=== PATIENT | female | born 1965 | race Caucasian/White ===

== ENCOUNTER → 2017-08-25 16:47 | Outpatient (CLI) | payer OTHER, SELFPAY ==
--- NOTE | 2017-08-25 | EMB_PTH ---
PATIENT: KAYLEE MCNALLY LOC: [facility] U#:[id number] AGE/SX: 59/F ROOM: RE08/25/[address]: EMERSON Humphrey : 1965 BED: DIS: SPEC #: [id number] RECD: 08/25/17 16:19 STATUS: JORGE ROSARIO #: [id number] ROBBY: 08/25/17 00:[address]: Lakshmi De La Rosa NP DEPT: SURGICAL PATHOLOGY RECD BY: Florentin Alvarez ENTERED: 08/26/17 08:46 SP TYPE: ENDOM BX/C WALT DR: Dr. Dali Dorsey MD Tissues: Endometrium, NOS Procedures: Surgery Specimen Level IV HEADER OPERATION: Endometrial biopsy PRE-OP DIAGNOSIS: Abnormal uterine bleeding TISSUE SUBMITTED: Endometrium MICROSCOPIC DIAGNOSIS Endometrial biopsy: Proliferative endometrium. See comment. WARREN:mary carmen 08/27/17 COMMENT A minute fragment of polypoid endometrial tissue with focal cystic changes is noted, may represent portion of benign endometrial polyp. MICROSCOPIC DESCRIPTION Slides are reviewed. GROSS DESCRIPTION Received is one container labeled with the patient's name and not further designated. The specimen consists of multiple irregular and elongated fragments of red-larios soft tissue that in aggregate measure 2.2 x 2 x 0.2 cm. The specimen is totally submitted in one cassette. / AM:mary carmen 08/26/17 TC:5 [facility]: [id number]
== END ==
PROVIDERS: Family Provider Internal Medicine; PCP Internal Medicine; Visit Provider Nurse Practitioner Women's Health
DX: N85.8 Other specified noninflammatory disorders of uterus (principal); N93.9 Abnormal uterine and vaginal bleeding, unspecified
CPT/HCPCS: 88305

== ENCOUNTER 2017-12-23 05:41 | Day surgery (SDC) | payer OTHER, SELFPAY ==
[2017-12-21 11:09] LABS: Absolute Lymphocyte Count 1.66 X10^3/ul (0.83-4.51); Absolute Neutrophil Count 2.5 X10^3/uL (2.0-7.7); Basophil# 0.04 X10^3/uL; Basophil% 0.8 % (0-1); Eosinophil# 0.18 X10^3/uL; Eosinophils% 3.6 % (0-5); Hematocrit 40.6 % (37-47); Hemoglobin 13.6 g/dl (12.0-15.0); Lymphocyte # 1.66 X10^3/ul (4.0); Lymphocyte % 33.6 % (19-41); Mean Corp Hgb Conc 33.5 g/gl (32-36); Mean Corpuscular Hgb 29.8 pg (27.0-32.0); Mean Corpuscular Volume 88.8 fL (81-99); Mean Platelet Vol. 9.8 fl (6.2-12.0); Monocyte# 0.51 X10^3/uL; Monocyte% 10.3 % (0-10); Neutrophil # 2.52 X10^3/uL (2.7-7.7); Neutrophil % 51.1 % (47-70); Platelet Count 310 K/mm3 (150-450); RBC Distribution Width CV 12.9 % (11.6-14.6); RBC Distribution Width SD 41.7 fl (35.1-43.9); Red Blood Count 4.57 M/mm3 (4.2-5.4); White Blood Count 4.9 K/mm3 (4.4-11.0)
[2017-12-21 11:21] LABS: POSITIVE COUNT NO; POSITIVE DIFFERENTIAL NO; POSITIVE MORPHOLOGY NO
--- NOTE | 2017-12-22 17:23 | PCM.HPOB.BLA ---
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 Required: No Accompanied by: self Is patient in pain?: No Allergies Penicillins Allergy (Mild, Verified 10/18/17 08:04) hives Medications NK [NK] 08/25/17 [History Confirmed 10/18/17] Is last menstrual period known: Yes Last Menstral Period: 09/06/17 Post menopausal: No Patient : No [facility] Medical History Abnormal Pap smear of cervix (Acute) Surgical History S/P dilation and curettage (Resolved) S/P right knee surgery (Resolved) Status post colposcopy (Resolved) Family History Grandfather Myocardial infarction Prostate cancer Grandmother Lung cancer Social History Smoking Status: Never smoker alcohol intake: current details: few times per week substance use type: does not use caffeine: Yes what type of physical activity do you participate in: walking, running, aerobics frequency: 3-4 times per week seatbelt use: always do you feel safe at home: Yes 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 she is struggling with if she wants treatment or not. Female Reproductive History Last Menstral Period: 09/06/17 Cycle Length: 21-35 Questions: Metorrhagia: No, Sexually active: Yes, PCB: No Pregancy History 3 Elective abortions Hx Para 2 Spontaneous abortions Hx # Term Pregnancies Ectopic pregnancies Hx # Pregnancies Multiple births # of living children Past Pregnancies Del. Date Name GA/Weeks Outcome Route Bth Weight Gen Labor Lgth Anesthesia Del Locatn Provider FOB Unknown - 1995 Unknown ROS Const Constitutional: Denies poor appetite, headache(s), fever(s), increased appetite, weight gain, weight loss or fatigue Cardio Card: Denies chest pain Resp Resp: Denies dyspnea or cough GI GI: Reports as per HPI; denies vomiting, nausea, abdominal pain or constipation : Reports as per HPI; denies urinary urgency, vaginal discharge, urinary frequency, vaginal itching, vaginal odor, vaginal dryness, urinary incontinence, urinary hesitancy, difficulty urinating, painful urination or nipple discharge Skin Skin/Breast: Denies breast lump, breast pain, breast skin changes, nipple discharge or change in hair Exam Const General: cooperative, healthy appearing, comfortable, no acute distress, well developed Nutritional Appearance: average body habitus Orientation: alert HENMT Head: normal to inspection, normocephalic Neck Neck: normal visual inspection, trachea midline Thyroid: thyroid normal Resp Effort & Inspection: normal respiratory effort Cardio Rate: regular rate Rhythm: regular rhythm Heart Sounds: S1 normal, S2 normal GI Inspection: normal to inspection, non-distended Palpation: soft, no hepatosplenomegaly General: bladder normal to palpation External Female Exam: normal external appearance, normal appearance of the urethra Urethra: normal appearance of the urethra, normal palpation Speculum Exam - Vagina: normal appearance of the vagina, vaginal bleeding Speculum Exam - Cervix: normal appearance of the cervix, nontender Bimanual Exam- Vagina & Uterus: bladder normal to palpation, No cervical tenderness, uterine mobility normal, uterine consistency normal, normal cervical palpation, uterus non-tender, uterus enlarged (12 week size wide multiple fibroids) Bimanual Exam- Adnexa, other: normal adnexae, adnexae mobile, no adnexal masses, pelvic support normal Pelvic Support: normal OB/External & Speculum: vaginal bleeding Speculum Exam: vaginal bleeding Musc Cervical Spine: other Other: gross motor intact no deficits, full bilateral strength Skin General: no rashes or lesions noted Neuro General: alert, awake, no focal motor deficits, moves all extremities Motor: muscle tone normal throughout Extrem General: normal to inspection, no pedal edema Psych Appearance: grossly normal Mental Status: mental status grossly normal Affect: normal affect Speech and Movement: speech and movement normal Assessment & Plan Problems 1. Female pelvic pain R10.2 2. Abnormal uterine bleeding N93.9 3. Intramural leiomyoma of uterus D25.1 plan [facility] BS cysto Plan discussed expectant management vs hysterectomy. patient wishes to proceed with surgery. discussed surgical risks including risks of anesthesia, infection, bleeding, injury to bowel, bladder or blood vessels, and patient wishes to proceed with surgery. Pelvic US findings- The uterus is anteverted and is in a midline position. The uterus is enlarged measures 12.5 x 8.1 x 8.2 cm. There are Nabothian cysts of the cervix. The endometrium measures 6.4 mm in thickness, and is hyperechoic. There is no demonstrated endometrial mass. There are myometrial masses/fibroids best seen transabdominally, largest 2 fibroids measure 5.0 x 3.8 x 3.7 cm and 2.2 x 2.0 x 2.1 cm in size. I.U.D. - The patient does not have an I.U.D. The right ovary is visualized. The right ovary measures 1.6 x 1.8 x 1.2 cm. There is no right ovarian cyst or ovarian mass. There is no visualized right adnexal mass or complex lesion. There is normal arterial and normal venous vascularity. The left ovary is visualized. The left ovary measures 2.0 x 2.0 x 1.5 cm. There is no left ovarian cyst or ovarian mass. There is no visualized left adnexal mass or complex lesion. There is normal arterial and normal venous UPDATE- I have seen the patient and performed any clinically relevant updates to the history and physical exam. Alvina Barrios MD
[2017-12-23] VITALS (12 sets, daily range): BP systolic 87–133; BP diastolic 59–86; PULSE 48–84; RESP 14–16; TEMP 36.3–36.9; O2SAT 90–100; BMI 31.9
--- NOTE | 2017-12-23 | HYST_PTH ---
PATIENT: KAYLEE MCNALLY LOC: [facility] [place] U#:[id number] AGE/SX: 52/F ROOM: RE12/23/[address]: Dr. Alvina Barrios MD : 1965 BED: DIS: 12/24/2017 SPEC #: [id number] RECD: 12/23/17 11:53 STATUS: JORGE PONCE #: [id number] ROBBY: 12/23/17 00:[address]: Alvina Barrios DEPT: SURGICAL PATHOLOGY RECD BY: Florentin Alvarez ENTERED: 12/23/17 11:53 SP TYPE: HYSTERECT OTHR DR: Dr. Dali Dorsey MD Tissues: Uterus, NOS Procedures: Surgery Specimen Level V HEADER OPERATION: Hysterectomy, lap-assisted vaginal, bilateral salpingectomy PRE-OP DIAGNOSIS: Female pelvic pain, abnormal uterine bleeding, intramural leiomyoma of uterus TISSUE SUBMITTED: Uterus, cervix and bilateral tubes MICROSCOPIC DIAGNOSIS Uterus, cervix and bilateral fallopian tubes, vaginal hysterectomy and bilateral salpingectomy: Cervix ? mild chronic cystic cervicitis. Endometrium ? proliferative endometrium. Myometrium ? submucosal, intramural and subserosal leiomyomas (largest measuring 2 cm in greatest dimension). - Adenomyosis. Bilateral fallopian tubes - no pathologic diagnosis. SJ:rg 12/24/17 MICROSCOPIC DESCRIPTION Slides are reviewed. GROSS DESCRIPTION Received in fixative is one container labeled with the patient's name and designated uterus, cervix and bilateral tubes. The specimen consists of a hysterectomy specimen previously partially opened consisting of uterus with cervix consisting of attached right fallopian tube and proximal portion of attached left fallopian tube and detached distal portion left fallopian tube including fimbrial end. The uterus with cervix weighs 238 gm and measures 11 x 9 x 7 cm. The serosal surface is larios, glistening. A few minute subserosal nodules are noted. The external os is circular in contour. The endocervical canal measures 3 cm in length and the endocervical mucosa is larios, glistening and unremarkable. Sections of the cervix reveal two cysts filled with mucoid material. The endometrial cavity measures 5 cm in length and up to 3 cm in width. The endometrium is larios, glistening without any mass lesion and measures 0.1 cm in thickness. Sections of the uterine wall reveal multiple submucosal, intramural and subserosal nodular masses. The largest mass measures 2 cm in greatest dimension. The anterior uterine wall measures up to 3.5 cm in thickness and posterior uterine wall measures up to 2.5 cm in thickness. Sections of these masses reveal larios whorled cut surfaces without areas of hemorrhage, necrosis or cystic degeneration. The anterior uterine wall shows trabecular appearance suspicious for adenomyosis. The right fallopian tube measures 6.5 cm in length and 0.7 cm in diameter. The fimbrial end is identified. Sections reveal unremarkable cut surfaces. The attached portion of the left fallopian tube measures 4 cm in length and 0.8 cm in diameter. The detached distal end including fimbrial end measures 3 cm in length and up to 0.5 cm in diameter. A paratubal cyst is also noted measuring 0.5 cm in greatest dimension. Adoption Agent sections are submitted in 11 cassettes as follows: 1 - anterior cervix, 2 - posterior cervix, 3 & 4 - anterior uterine wall, 5 & 6 - posterior uterine wall, 7 & 8 ? smaller and intermediate sized nodular masses, 9 ? largest nodular mass, 10 ? right fallopian tube, 11 ? left fallopian tube including detached portion of the left fallopian tube. / SJ:mary carmen 12/23/17 TC:1 CPT: 82811
[2017-12-23 06:15] LABS: Internal QC Validated? YES +Cl - CLEAR BKGD; Pregnancy, Urine Negative Negative
[2017-12-23] MEDS: Phenazopyridine 95 MG Tablet 190 MG PO (06:30)
[2017-12-23] MEDS: Bupivacaine Mpf 0.5% 30 ML VIAL (08:00)
[2017-12-23] MEDS: Vasopressin 20 UNITS/ML Vial (08:20)
--- NOTE | 2017-12-23 09:09 | PCM.OPRPT ---
Problem List (1) Abnormal uterine bleeding Status: Acute (2) BMI greater than 30 Status: Acute Comment: weight loss info given discussed adipex if desired (3) Female pelvic pain Status: Acute (4) Uterine fibroid Status: Acute Qualifiers: Comment: plan [facility] BS cysto, education from up to date given Report of Operation Date of Procedure: 12/23/17 Pre-Operative Diagnosis: Urine fibroids enlarged uterus pelvic pain Post-Operative Diagnosis: Same Surgery/Procedure Performed:: Laparoscopic assisted vaginal hysterectomy bilateral salpingectomy cystoscopy Description of Surgical Findings:: Enlarged fibroid uterus normal ovaries and fallopian tubes bilaterally. Small 5 mm growth near right ureteral orifice detonator maker: Edelmira Perez Type of Anesthesia:: General Special Medications: None Specimen's removed: Uterus and tubes Drains: Ochoa Estimated Blood Loss (mL): 50 Fluids Replaced: Crystalloid Description of Procedure: Patient received preoperative antibiotics and SCDs were on preoperatively. Patient was taken back to the operating room and placed in the dorsal lithotomy position. General anesthesia was induced and patient was prepped and draped in normal sterile fashion. Uterine manipulator was placed inside the uterus and Ochoa catheter placed in the bladder. The umbilicus was grasped with towel clamps and an intraumbilical incision was made after injecting with quarter percent Marcaine and a Veress needle entered into the abdomen confirmed to be intra-abdominal with a low opening pressure. Abdomen was insufflated with CO2 gas and the Veress needle removed and the 5 mm trocar was placed under direct visualization without complication. Right and left lower quadrants were transilluminated and injected with quarter percent Marcaine and 5 mm ports placed under direct visualization. Pelvis was well visualized see operative findings for additional information. Bilateral fallopian tubes were identified and transected with the LigaSure device across the mesosalpinx to the level of the utero-ovarian ligament which was also transected with the LigaSure device. The broad ligament was opened up by transecting the round ligament bilaterally and skeletonizing the uterine vessels bilaterally and creating a bladder flap using the LigaSure device. The uterine arteries were transected bilaterally with good visualization of the bladder and the ureters were seen to be inferior lateral to the operative area. Attention was then paid to the vaginal portion of the procedure and the cervix was grasped with Kaylee clamps and circumferentially injected with dilute vasopressin. A circumferential incision was made and the vaginal mucosa was mobilized off posteriorly and the cul-de-sac entered into sharply and a longneck speculum placed. The anterior cul-de-sac was then identified and entered into sharply. The uterosacral ligaments were clamped cut and suture ligated with 0 Monocryl bilaterally followed by the cardinal ligaments which were clamped cut and suture ligated bilaterally with 0 Monocryl. The uterus serially descended and was removed without difficulty with minimal morcellation. Pelvic sidewall pedicles were checked and noted to have excellent hemostasis. The vaginal mucosa was reapproximated incorporating the posterior peritoneum. This was reapproximated using 0 Vicryl [id number] sutures. Excellent hemostasis was noted. The cystoscopy was then performed and bilateral ureteral strong spray was noted and the bladder was inspected and a small 5 mm growth was seen at the right ureteral orifice. Picture was taken. Ochoa catheter was replaced and then attention paid to the abdominal portion of the procedure again. The pelvis and cul-de-sac was well visualized and no significant active bleeding noted but some raw areas were seen on the peritoneum and therefore Angela was applied. Pressure was taken down and the areas visualized and noted of excellent hemostasis. All ports were removed under direct visualization without complication and the abdomen was desufflated of air. The instruments removed from the abdomen and the vagina vaginal sweep was negative. Port sites on the abdomen were closed with 4-0 Monocryl interrupted sutures and Steri's and windows were applied. She was awoken and taken recovery in stable condition. Grafts/Implants Used: None - Complications None - Admit VTE Documentation VTE Present on Admission: No
[2017-12-23] MEDS: Lactated Ringers 1,000 ML 125 ML IV ×2 (11:57→19:25)
[2017-12-23] MEDS: Ketorolac 30 MG/ML Syringe IV ×3 (11:57→23:17)
[2017-12-23 13:08] LABS: Anion Gap 10 (5-15); BUN 10 mg/dL (7-18); BUN/Creat Ratio 13.6 RATIO (10-20); Calcium,Total 8.3 mg/dL (8.5-10.1); Chloride 108 mmol/L (98-107); Creatinine, Serum 0.74 mg/dL (0.55-1.02); EST Glomerular Filtration Rate 87 mL/min (>60); Est Glom Filt Rate - Afr Amer 105 mL/min (>60); Estimated Creatinine Clearance 84.52 ml/min; Glucose 144 mg/dL (74-106); Potassium 3.8 mmol/L (3.5-5.1); Sodium Level 142 mmol/L (136-145)
[2017-12-23] MEDS: Acetaminophen 500 MG Tablet 1000 MG PO (20:04)
[2017-12-23] MEDS: Ondansetron 4 MG/2 ML Vial IV (20:04)
[2017-12-23] MEDS: 0.9% NaCl Peripheral Flush Adult/Peds IV ×2 (20:04→23:17)
[2017-12-23] MEDS: Enoxaparin 40 MG/0.4 ML Syringe SC (22:03)
[2017-12-24] MEDS: Lactated Ringers 1,000 ML 125 ML IV (02:27)
[2017-12-24 02:32] VITALS: BP 117/72; PULSE 85; RESP 16; TEMP 37.2; O2SAT 97
[2017-12-24] MEDS: Ketorolac 30 MG/ML Syringe IV (05:19)
[2017-12-24] MEDS: 0.9% NaCl Peripheral Flush Adult/Peds IV (05:20)
[2017-12-24 06:32] LABS: Hematocrit 33.2 % (37-47); Mean Corp Hgb Conc 33.1 g/gl (32-36); Mean Corpuscular Hgb 29.4 pg (27.0-32.0); Mean Corpuscular Volume 88.8 fL (81-99); Mean Platelet Vol. 9.4 fl (6.2-12.0); Platelet Count 206 K/mm3 (150-450); RBC Distribution Width CV 12.7 % (11.6-14.6); RBC Distribution Width SD 40.8 fl (35.1-43.9); Red Blood Count 3.74 M/mm3 (4.2-5.4); White Blood Count 7.3 K/mm3 (4.4-11.0)
[2017-12-24 06:38] LABS: Scan Indicated on CBC? Y/N NO
[2017-12-24 08:29] VITALS: BP 118/74; PULSE 79; RESP 16; TEMP 37.2; O2SAT 97
[2017-12-24] MEDS: Acetaminophen 500 MG Tablet 1000 MG PO (08:38)
--- NOTE | 2017-12-24 11:15 | NURSING ---
Call placed to Dr. Barrios's office per husbands request. Spoke with RN and notified her that states he needs to go to work and would like pt to be discharged ALEXANDRA. RN states that Dr. Barrios is very busy and has 30+ cases in office today. States she was planning on rounding around lunchtime but will let her know and see what she can do. Patient and notified of same.
[2017-12-24] MEDS: Ketorolac 10 MG Tablet PO (11:46)
--- NOTE | 2017-12-24 12:07 | PCM.PN.OB ---
Subjective: doing well no complaints - Physical Exam General: Alert, Oriented x3 Vital Signs Temp Pulse Resp BP Pulse Ox 98.9 F 79 16 118/74 97 12/24/17 08:29 12/24/17 08:29 12/24/17 08:29 12/24/17 08:29 12/24/17 08:29 Oxygen Delivery Method Room Air Weight: 203 lb 14.841 oz Body Mass Index (BMI) 31.9 Intake and Output for Last 24 Hours 12/22/17 12/23/17 12/24/17 23:59 23:59 23:59 Intake Total 4020 / 4020 1755 / 1755 Output Total 1490 / 1490 2900 / 2900 Balance 2530 / 2530 -1145 / -1145 Laboratory Tests Past 24 Hrs 12/23/17 12/24/17 12:10 06:05 WBC 7.3 RBC 3.74 L Hgb 11.0 L Hct 33.2 L MCV 88.8 MCH 29.4 MCHC 33.1 RDW 12.7 RDW Differential 40.8 Plt Count 206 MPV 9.4 Sodium 142 Potassium 3.8 Chloride 108 H Carbon Dioxide 24.0 Anion Gap 10 BUN 10 Creatinine 0.74 Estim Creat Clear Calc 84.52 Est GFR (MDRD) Af Amer 105 Est GFR (MDRD) Non-Af 87 BUN/Creatinine Ratio 13.6 Glucose 144 H Calcium 8.3 L Medical Necessity - Tobacco Use Smoking Status: Never smoker Assessment/Plan All Active Problems (Last Reviewed 10/18/17 @ 08:05 by Gillian Steward) BMI greater than 30 (Acute) Female pelvic pain (Acute) Abnormal uterine bleeding (Acute) Uterine fibroid (Acute) s/p [facility]
--- NOTE | 2017-12-24 13:09 | NURSING ---
Addendum entered by Olya Ibanez 12/24/17 13:25: Return call received at this time from AMAURY French and notified that Dr. Barrios thought she had entered them but will now and should be in computer in next 10 minutes or so. Original Note: Observed progress note entered by Dr. Barrios- again called into office and left message for her RN to ensure that patient's discharge is addressed today.
--- NOTE | 2017-12-24 13:25 | PCM.DC.VHY ---
Discharge Diet: No Restrictions Discharge Activity: Return to Normal Activity, May Not Drive, May Shower May resume sexual activity in: 6-8 weeks Call your doctor if your incision/area has: Continuous Slow Oozing, Sudden Increased Bleeding, Increased Pain/ Swelling, Increased Redness, Foul Smelling Discharge Call your doctor if you observe: Fever of 101 or Higher, Inability to urinate, Inability to have a bowel movement, Using more than one pad per hour Allergies/Adverse Reactions: Allergies Penicillins Allergy (Mild, Verified 12/09/17 12:42) hives Medications to take at Discharge Oxycodone HCl/Acetaminophen [Percocet 5-325] 1 - 2 tablet PO Q4H PRN PRN 7 Days #15 tablet 12/24/17 The following prescriptions were given: Oxycodone HCl/Acetaminophen [Percocet 5-325] 1 - 2 tablet PO Q4H PRN PRN 7 Days #15 tablet PRN Reason: Pain Primary Care Physician: Dali Dorsey MD [Primary Care Provider] - Test Results: Test results from this visit will be discussed in further detail at your follow-up appointment, if applicable. Please Follow Up With: Alvina Barrios MD - [phone]
[2017-12-24 13:44] VITALS: BP 118/74; PULSE 75; RESP 16; TEMP 37.2; O2SAT 98
== END 2017-12-24 14:03 | disposition home or self-care (01) ==
LOC: SDC 05:46 → AC 05:49 → MS2 08:11
PROVIDERS: Anesthesiology; Family Provider Internal Medicine; PCP Internal Medicine; Visit Provider Obstetrics & Gynecology
PROC: 0UT9FZZ Resection of Uterus, Via Natural or Artificial Opening With Percutaneous Endoscopic Assistance (ICD-10-PCS; CPT 58552; principal; 2017-12-23 07:05)
DX: D25.1 Intramural leiomyoma of uterus (principal); N80.0 Endometriosis of uterus; D25.0 Submucous leiomyoma of uterus; D25.2 Subserosal leiomyoma of uterus
CPT/HCPCS: 58552; 36415; 80048; 81025; 85025; 85027; 86850; 86900; 88307; 93005; J7120; A4216; J2405

== ENCOUNTER → 2018-01-21 09:10 | Outpatient (CLI) | payer OTHER, SELFPAY ==
[2018-01-21 10:47] LABS: Hematocrit 41.7 % (37-47); Hemoglobin 14.4 g/dl (12.0-15.0); Mean Corp Hgb Conc 34.5 g/gl (32-36); Mean Corpuscular Hgb 30.1 pg (27.0-32.0); Mean Corpuscular Volume 87.1 fL (81-99); Mean Platelet Vol. 9.6 fl (6.2-12.0); Platelet Count 271 K/mm3 (150-450); RBC Distribution Width CV 12.9 % (11.6-14.6); RBC Distribution Width SD 39.9 fl (35.1-43.9); Red Blood Count 4.79 M/mm3 (4.2-5.4); White Blood Count 5.1 K/mm3 (4.4-11.0)
[2018-01-21 10:52] LABS: Scan Indicated on CBC? Y/N NO
[2018-01-21 11:16] LABS: Anion Gap 8 (5-15); BUN 12 mg/dL (7-18); BUN/Creat Ratio 16.4 RATIO (10-20); Calcium,Total 8.6 mg/dL (8.5-10.1); Chloride 104 mmol/L (98-107); Creatinine, Serum 0.73 mg/dL (0.55-1.02); EST Glomerular Filtration Rate 88 mL/min (>60); Est Glom Filt Rate - Afr Amer 107 mL/min (>60); Glucose 92 mg/dL (74-106); Potassium 3.8 mmol/L (3.5-5.1); Sodium Level 136 mmol/L (136-145)
== END ==
PROVIDERS: Family Provider Internal Medicine; PCP Internal Medicine; Referring Provider Urology; Visit Provider Urology
DX: D48.9 Neoplasm of uncertain behavior, unspecified (principal)
CPT/HCPCS: 36415; 80048; 85027

== ENCOUNTER 2018-01-25 10:33 | Day surgery (SDC) | payer OTHER, SELFPAY ==
--- NOTE | 2018-01-25 | BLA_PTH ---
PATIENT: KAYLEE MCNALLY LOC: [facility] [place] U#:[id number] AGE/SX: 52/F ROOM: RE01/25/[address]: Dr. Alexandria Roman MD : 1965 BED: DIS: 01/25/2018 SPEC #: [id number] RECD: 01/25/18 14:23 STATUS: JORGE ROSARIO #: [id number] ROBBY: 01/25/18 00:[address]: Alexandria Roman DEPT: SURGICAL PATHOLOGY RECD BY: Florentin Alvarez ENTERED: 01/25/18 14:23 SP TYPE: BLADDER BX OTHR DR: Dr. Dali Dorsey MD Tissues: Urinary bladder, NOS Procedures: Surgery Specimen Level IV HEADER OPERATION: Cysto, biopsy, fulguration, bladder PRE-OP DIAGNOSIS: Neoplasm of bladder with uncertain behavior TISSUE SUBMITTED: Bladder biopsy MICROSCOPIC DIAGNOSIS Bladder, biopsy: Fragments of urothelial mucosa with chronic inflammation and papillary epithelial hyperplasia. Cystitis cystica with focal calcifications. Negative for malignancy. See comment. WARREN:mary carmen 01/26/18 COMMENT Detrusor muscle is present in the submitted specimen. Case has been reviewed in consultation with Dr. Winslow who concurs with the above diagnosis. IDC:AM MICROSCOPIC DESCRIPTION Slides are reviewed. GROSS DESCRIPTION Received in fixative is one container labeled with the patient's name and designated bladder biopsy. The specimen consists of three irregular fragments of light larios soft tissue that in aggregate measure 0.4 x 0.2 x 0.1 cm. The specimen is totally submitted in one cassette. / WARREN:mary carmen 01/25/18 TC:3 CPT: 55151
[2018-01-25] MEDS: Ciprofloxacin 400 MG/200 ML BAG 200 MG IV (07:00)
[2018-01-25 10:53] VITALS: BP 135/99; PULSE 79; RESP 16; TEMP 37.2; O2SAT 96; BMI 31.6
[2018-01-25 13:43] VITALS: BP 118/88; BP 135/99; PULSE 74; RESP 16; TEMP 36.4; O2SAT 97
[2018-01-25 13:45] VITALS: BP 109/86; BP 135/99; PULSE 71; RESP 16; O2SAT 100
--- NOTE | 2018-01-25 13:50 | PCM.IMDPSTOP ---
Immediate Post-Op Note Date of Procedure: 01/25/18 Primary Surgeon/Physician: Alexandria Roman MD managing consultant: Alexandria Roman Pre-Operative Diagnosis: Bladder neoplasm unspecified Post-Operative Diagnosis: same Surgery/Procedure Performed:: cystoscopy, bladder biopsy with fulguration Description of Surgical Findings:: superficial papillary lesion very close to the ureteral orifice. Estimated Blood Loss: 2cc Specimen's removed: bladder biopsy Type of Anesthesia:: General - Admit VTE Documentation VTE Present on Admission: Yes VTE Mechan Device Prophylaxis: SCD's VTE Pharm Prophylaxis ordered?: No Reason prophylaxis not ordered:: Treatment Not Indicated
--- NOTE | 2018-01-25 13:52 | PCM.DC.URO ---
Discharge Diet: No Restrictions Discharge Activity: Return to Normal Activity, May not drive while taking narcotic pain medications., May Shower May resume sexual activity in: 1 week Call your doctor if you observe: Fever of 101 or Higher, Inability to urinate, Inability to have a bowel movement, Shortness of breath, Chest pain Allergies/Adverse Reactions: Allergies Penicillins Allergy (Mild, Verified 01/24/18 09:06) hives Medications to take at Discharge NK 01/05/18 Primary Care Physician: Dali Dorsey MD [Primary Care Provider] - Test Results: Test results from this visit will be discussed in further detail at your follow-up appointment, if applicable. Please Follow Up With: Alexandria Roman MD When: 1 week, call for appt Proposed Discharge Date: 01/25/18
--- NOTE | 2018-01-25 13:55 | DCINST_ITS ---
Discharge Diet: No Restrictions Discharge Activity: Return to Normal Activity, May not drive while taking narcotic pain medications., May Shower May resume sexual activity in: 1 week Call your doctor if you observe: Fever of 101 or Higher, Inability to urinate, Inability to have a bowel movement, Shortness of breath, Chest pain Allergies/Adverse Reactions: Allergies Penicillins Allergy (Mild, Verified 01/24/18 09:06) hives Medications to take at Discharge NK 01/05/18 Primary Care Physician: Dali Dorsey MD [Primary Care Provider] - Test Results: Test results from this visit will be discussed in further detail at your follow- up appointment, if applicable. Please Follow Up With: Alexandria Roman MD When: 1 week, call for appt Proposed Discharge Date: 01/25/18
[2018-01-25 14:00] VITALS: BP 121/83; BP 135/99; PULSE 67; RESP 16; TEMP 36.3; O2SAT 98
[2018-01-25 14:30] VITALS: BP 135/99
--- NOTE | 2018-01-27 18:06 | PCM.OPRPT ---
Problem List (1) Bladder neoplasm of uncertain malignant potential Status: Acute Report of Operation Date of Procedure: 01/25/18 Pre-Operative Diagnosis: Bladder neoplasm unspecified Post-Operative Diagnosis: same Surgery/Procedure Performed:: cystoscopy, bladder biopsy with fulguration Description of Surgical Findings:: superficial papillary lesion very close to the ureteral orifice. winding machine operator: Alexandria Roman Type of Anesthesia:: General Specimen's removed: bladder biopsy Estimated Blood Loss (mL): 2cc Description of Procedure: The patient is a 52-year-old female referred to me by Dr. Alvina Barrios for findings of an abnormal bladder mucosal lesion identified on postoperative cystoscopy following a hysterectomy. After discussing the risks benefits and alternatives, we agreed to proceed with removal of this lesion under anesthesia. The patient understood the risks and agreed to proceed. The patient was taken to the operating room and placed on the operating room table. Anesthesia monitored the head neck airway IV access and vital signs throughout the case. Once anesthesia was appropriately administered the patient was placed into dorsal lithotomy position and was prepped and draped in usual sterile fashion. A cystourethroscopy was then performed using a 70 degree lens. The only lesion identified was the one seen by Dr. Barrios. This lesion was a 5 mm lesion just adjacent to the patient's right ureteral orifice in a medial position. It was papillary in nature. There were no other abnormalities identified including ulcerations or foreign bodies. At this time using flexible biopsy forceps, the lesion and surrounding tissue were removed and its entirety. Using cautery, hemostatic control and tissue treatment was achieved. The patient's bladder was then emptied and she was awakened and taken to the recovery room in good condition. There were no complications during this treatment. - Complications none - Admit VTE Documentation VTE Present on Admission: Yes VTE Mechan Device Prophylaxis: SCD's VTE Pharm Prophylaxis ordered?: No Reason prophylaxis not ordered:: Treatment Not Indicated
--- NOTE | 2018-01-27 18:10 | OP.PCM_ITS ---
Problem List (1) Bladder neoplasm of uncertain malignant potential Status: Acute Report of Operation Date of Procedure: 01/25/18 Pre-Operative Diagnosis: Bladder neoplasm unspecified Post-Operative Diagnosis: same Surgery/Procedure Performed:: cystoscopy, bladder biopsy with fulguration Description of Surgical Findings:: superficial papillary lesion very close to the ureteral orifice. records management technician: Alexandria Roman Type of Anesthesia:: General Specimen's removed: bladder biopsy Estimated Blood Loss (mL): 2cc Description of Procedure: The patient is a 52-year-old female referred to me by Dr. Alvina Barrios for findings of an abnormal bladder mucosal lesion identified on postoperative cystoscopy following a hysterectomy. After discussing the risks benefits and alternatives, we agreed to proceed with removal of this lesion under anesthesia. The patient understood the risks and agreed to proceed. The patient was taken to the operating room and placed on the operating room table. Anesthesia monitored the head neck airway IV access and vital signs throughout the case. Once anesthesia was appropriately administered the patient was placed into dorsal lithotomy position and was prepped and draped in usual sterile fashion. A cystourethroscopy was then performed using a 70 degree lens. The only lesion identified was the one seen by Dr. Barrios. This lesion was a 5 mm lesion just adjacent to the patient's right ureteral orifice in a medial position. It was papillary in nature. There were no other abnormalities identified including ulcerations or foreign bodies. At this time using flexible biopsy forceps, the lesion and surrounding tissue were removed and its entirety. Using cautery, hemostatic control and tissue treatment was achieved. The patient's bladder was then emptied and she was awakened and taken to the rec overy room in good condition. There were no complications during this treatment. - Complications none - Admit VTE Documentation VTE Present on Admission: Yes VTE Mechan Device Prophylaxis: SCD's VTE Pharm Prophylaxis ordered?: No Reason prophylaxis not ordered:: Treatment Not Indicated
== END 2018-01-25 14:31 | disposition home or self-care (01) ==
LOC: SDC 10:33 → AC 10:34
PROVIDERS: Family Provider Internal Medicine; PCP Internal Medicine; Referring Provider Urology; Visit Provider Urology
PROC: 0TBB8ZX Excision of Bladder, Via Natural or Artificial Opening Endoscopic, Diagnostic (ICD-10-PCS; CPT 52224; principal; 2018-01-25 12:00)
DX: D30.3 Benign neoplasm of bladder (principal); N30.80 Other cystitis without hematuria
CPT/HCPCS: 52224; 88305; J7120; J0744; J2405

== ENCOUNTER → 2018-04-11 09:58 | Outpatient (CLI) | payer OTHER, SELFPAY ==
--- NOTE | 2018-04-11 10:00 | BI_ITS ---
MAMMOGRAPHY - BILATERAL SCREENING 3-D ANTONETTE SYNTHESIS REASON FOR EXAM: Female, 52 years old. Bilateral Screening 3-D tomosynthesis PERTINENT HISTORY: No significant family history. TECHNIQUE: 2-D mammograms and 3-D Antonette synthesis of the breast (s) were performed. CAD was performed. COMPARISON: February 03, 2017. FINDINGS: The breast composition is of heterogeneous fibroglandular tissue. There is a approximately 1.1 x 0.7 cm spiculated lesion seen in the craniocaudal view on the left the breast identified better by the tomosynthesis in the craniocaudal projection this lesion more obvious than the previous exam and is suspicious for which I would recommend MRI with contrast for better assessment. Otherwise no suspicious microcalcifications are identified. No architectural distortion is identified. There is no skin thickening or nipple retraction. BI/SCREENING MAMM (CAD), BILAT IMPRESSION: Suspicious dense spiculated lesion with the measurements described above in the left breast noted in the craniocaudal view, For which MRI is recommended with contrast to rule out possibility of malignancy. ASSESSMENT CATEGORY: BIRADS-0 Approximately 10% of breast cancers are not detected by mammography. A normal mammogram should not delay biopsy of a clinically suspicious abnormality. Electronically Signed: Jaylen Oreilly, at 10:05 EST Tel , Service support ,
== END ==
PROVIDERS: Family Provider Internal Medicine; PCP Internal Medicine; Referring Provider Obstetrics & Gynecology; Visit Provider Obstetrics & Gynecology
DX: Z12.31 Encounter for screening mammogram for malignant neoplasm of breast (principal)
CPT/HCPCS: 77063; 77067

== ENCOUNTER → 2018-04-25 13:15 | Outpatient (CLI) | payer OTHER, SELFPAY ==
[2018-01-31 10:23] VITALS: BMI 32.8
--- NOTE | 2018-04-25 13:19 | MRI_ITS ---
STUDY: BILATERAL BREAST MR WITHOUT AND WITH CONTRAST REASON FOR EXAM: Female, 52 years old. Study recommended as workup for mammographic lesion. TECHNIQUE: Multi-sequence multi-echo imaging of both breasts was performed with a dedicated breast coil. T1-weighted and T2-weighted images were performed before the administration of contrast. T1-weighted images were also performed after the administration of 9 mL of Gadavist contrast intravenously without complications. COMPARISON: Screening mammograms dated April 11, 2018 and February 03, 2017. FINDINGS: RIGHT BREAST: The breast tissue is scattered fibroglandular densities with minimal background enhancement. There are multiple small less than 1 cm cysts. There are no abnormal enhancing masses or areas of non-mass enhancement in the right breast. LEFT BREAST: The breast tissue is scattered fibroglandular densities with minimal background enhancement. There are multiple small cysts. There are no abnormal enhancing masses or areas of non-mass enhancement in the left breast. There are no enlarged or abnormal lymph nodes. There is no abnormality in the visualized regions of the chest or liver. MRI/Breast Bilateral W/O and W IMPRESSION: Multiple small cysts on the breast MRI examination with contrast. The patient should return for a diagnostic left mammogram with compression spot views and likely ultrasound of the outer aspect of the left breast for a lesion which has characteristics of a simple cyst. CATEGORY: BIRADS Category 0: Incomplete. Need additional imaging evaluation. A letter regarding these results will be sent to the patient by the facility within 30 days. Electronically Signed: See Monroy MD at 11:58 EST , Service support ,
== END ==
PROVIDERS: Family Provider Internal Medicine; PCP Internal Medicine; Referring Provider Obstetrics & Gynecology; Visit Provider Obstetrics & Gynecology
DX: R92.8 Other abnormal and inconclusive findings on diagnostic imaging of breast (principal)
CPT/HCPCS: 77049; A9585; A4216; C8908

== ENCOUNTER → 2018-12-02 | Outpatient (CLI) | payer OTHER, SELFPAY ==
--- NOTE | 2018-12-02 09:00 | BI_ITS ---
MAMMOGRAPHY - BILATERAL DIAGNOSTIC REASON FOR EXAM: Female, 53 years old. Breast MRI demonstrated cysts in the left breast. PERTINENT HISTORY: Non-contributory. TECHNIQUE: Digital bilateral breast mckayla (3D mammographic acquisition) in the CC and MLO projections. 2-D mediolateral oblique (MLO) and craniocaudad (CC) views of both breasts were obtained. CAD: Full Field Digital Mammography with Computer Added Detection was performed. COMPARISON: Comparison is made with prior study dated April 11, 2018 and February 03, 2017. FINDINGS: Breast Composition: The breasts are heterogeneously dense, which may obscure small masses. There are no dominant masses or suspicious calcifications. No other significant abnormalities are identified. There has been no significant change since the prior study. BI/DIAG MAMM W/CAD, BILAT IMPRESSION: Stable bilateral diagnostic mammogram. With the patient's history of the cysts seen on the recent MRI examination, correlation with ultrasound of the left breast is recommended. ASSESSMENT CATEGORY: BIRADS Category 0: Incomplete. Need additional imaging evaluation. A letter regarding these results will be sent to the patient by the facility within 30 days. Approximately 10% of breast cancers are not detected by mammography. A normal mammogram should not delay biopsy of a clinically suspicious abnormality. Electronically Signed: Erwin Crook, at 10:13 EDT , Service support ,
--- NOTE | 2018-12-02 09:34 | US_ITS ---
STUDY: ULTRASOUND BREAST - LEFT REASON FOR EXAM: Female, 53 years old. Abnormal MRI scan of the left breast. TECHNIQUE: Axial and longitudinal images of the LEFT breast were performed with a high resolution ultrasound transducer. COMPARISON: Comparison is made with prior mammogram done earlier today as well as prior MRI of the breast dated April 25, 2018. FINDINGS: LEFT Breast: The lateral half of the left breast was examined by ultrasound. Multiple small cysts are seen. The largest measures 5 mm x 7 mm x 5 mm and is at the 2:00 position of the breast at 3 cm from nipple. US/Breast Limited Unilateral IMPRESSION: Multiple small cysts. ASSESSMENT CATEGORY: BIRADS Category 2: Benign. A letter regarding these results will be sent to the patient by the facility within 30 days. Electronically Signed: Erwin Crook, at 11:04 EDT , Service support ,
== END | disposition home or self-care (01) ==
LOC: OPBI 08:58
PROVIDERS: Family Provider Internal Medicine; PCP Internal Medicine; Referring Provider Obstetrics & Gynecology; Visit Provider Obstetrics & Gynecology
DX: R92.8 Other abnormal and inconclusive findings on diagnostic imaging of breast (principal)
CPT/HCPCS: 76642; 77062; 77066; G0279

== ENCOUNTER → 2020-02-19 10:06 | Outpatient (CLI) | payer OTHER, SELFPAY ==
[2020-02-19 09:14] VITALS: BMI 33.5
[2020-02-19 12:40] LABS: Absolute Lymphocyte Count 1.68 X10^3/uL (0.83-4.51); Absolute Neutrophil Count 3.2 X10^3/uL (2.0-7.7); Basophil# 0.03 X10^3/uL; Basophil% 0.5 % (0-1); Eosinophil# 0.17 X10^3/uL; Eosinophils% 3.1 % (0-5); Hematocrit 45.2 % (37-47); Hemoglobin 14.7 g/dL (12.0-15.0); Lymphocyte # 1.68 X10^3/ul (4.0); Lymphocyte % 30.7 % (19-41); Mean Corp Hgb Conc 32.5 g/dL (32-36); Mean Corpuscular Hgb 30.6 pg (27.0-32.0); Mean Platelet Vol. 9.8 fl (6.2-12.0); Monocyte# 0.38 X10^3/uL; Monocyte% 6.9 % (0-10); NRBC Flagged by Analyzer 0 % (0-5); Neutrophil # 3.19 X10^3/uL (2.7-7.7); Neutrophil % 58.4 % (47-70); Platelet Count 244 K/mm3 (150-450); RBC Distribution Width SD 41.7 fl (35.1-43.9); Red Blood Count 4.81 M/mm3 (4.2-5.4); White Blood Count 5.5 K/mm3 (4.4-11.0)
[2020-02-19 13:01] LABS: ALB/GLOB Ratio 1.1 RATIO (0.9-2.4); AST(SGOT) 21 U/L (15-37); Alanine Aminotransfer ALT/SGPT 38 U/L (13-56); Albumin, Serum 3.9 g/dL (3.2-5.0); Alkaline Phosphatase 72 U/L (45-117); Anion Gap 8 (5-15); BUN 12 mg/dL (7-18); BUN/Creat Ratio 14.1 RATIO (10-20); Calcium,Total 9.4 mg/dL (8.5-10.1); Chloride 107 mmol/L (98-107); Cholesterol 248 mg/dL (200); Creatinine, Serum 0.85 mg/dL (0.55-1.02); EST Glomerular Filtration Rate 73 mL/min (>60); Est Glom Filt Rate - Afr Amer 89 mL/min (>60); Globulin 3.6 g/dL (2.2-4.2); Glucose 95 mg/dL (74-106); High Density Lipoprotein 90 mg/dL; Potassium 4.2 mmol/L (3.5-5.1); Protein, Total 7.5 g/dL (6.4-8.2); Sodium Level 140 mmol/L (136-145); T4 Free Direct 1.01 ng/dL (0.76-1.46); Thyroid Stim Hormone (TSH) 1.31 uIU/mL (0.358-3.74); Triglycerides 100 mg/dL; Very Low Density Lipoprotein 20 mg/dL (5-40)
== END ==
PROVIDERS: PCP Internal Medicine; Referring Provider Internal Medicine; Visit Provider Internal Medicine
DX: I10 Essential (primary) hypertension (principal)
CPT/HCPCS: 36415; 80053; 80061; 84439; 84443; 85025

== ENCOUNTER → 2020-02-27 09:45 | Outpatient (CLI) | payer OTHER, SELFPAY ==
[2020-02-19 09:14] VITALS: BMI 33.5
--- NOTE | 2020-02-27 09:46 | EKG12_ITS ---
Test Reason : ROUTINE Blood Pressure : / mmHG Vent. Rate : 083 BPM Atrial Rate : 083 BPM P-R Int : 132 ms QRS Dur : 090 ms QT Int : 378 ms P-R-T Axes : 034 062 055 degrees QTc Int : 444 ms Normal sinus rhythm Normal ECG Confirmed by JOE CHILD, HARSHAD ([id number]), primer expeditor and drier JOSH CLEMENTS ([id number]) on 02/28/2020 8:56:51 AM Referred By: Janet Causey Confirmed By:HARSHAD DIAZ MD
== END ==
PROVIDERS: PCP Internal Medicine; Referring Provider Internal Medicine; Visit Provider Internal Medicine
DX: I10 Essential (primary) hypertension (principal)
CPT/HCPCS: 93005

== ENCOUNTER → 2020-03-11 15:14 | Outpatient (CLI) | payer OTHER, SELFPAY ==
[2020-01-31 13:40] VITALS: BMI 34.1
[2020-02-19 09:14] VITALS: BMI 33.5
--- NOTE | 2020-03-11 15:15 | BI_ITS ---
MAMMOGRAPHY - BILATERAL SCREENING REASON FOR EXAM: Female, 54 years old. Routine annual screening examination. PERTINENT HISTORY: Screening TECHNIQUE: Digital bilateral breast antonette (3D mammographic acquisition) in the CC and MLO projections. 2-D mediolateral oblique (MLO) and craniocaudad (CC) views of both breasts were obtained. CAD: Full Field Digital Mammography with Computer Added Detection was performed. COMPARISON: Previous mammogram obtained on 12/02/2018 FINDINGS: Breast Composition: Dense There are no dominant masses or suspicious calcifications. No other significant abnormalities are identified. BI/SCREEN MAMM (CAD) W/ANTONETTE BILAT IMPRESSION: Stable bilateral screening mammogram. Yearly follow-up mammogram recommended. (A) ASSESSMENT CATEGORY: BIRADS Category 1: Negative. A letter regarding these results will be sent to the patient by the facility within 30 days. Approximately 10% of breast cancers are not detected by mammography. A normal mammogram should not delay biopsy of a clinically suspicious abnormality. [id number] Electronically Signed: Justice Sánchez, at 17:24 EST Tel , Service support ,
== END ==
PROVIDERS: PCP Internal Medicine; Referring Provider Nurse Practitioner Women's Health; Visit Provider Nurse Practitioner Women's Health
DX: Z12.31 Encounter for screening mammogram for malignant neoplasm of breast (principal)
CPT/HCPCS: 77063; 77067

== ENCOUNTER → 2021-02-20 11:30 | Outpatient (CLI) | payer OTHER, SELFPAY ==
--- NOTE | 2021-02-20 11:32 | US_ITS ---
STUDY: ULTRASOUND OF THE FEMALE PELVIS - COMPLETE REASON FOR EXAM: Female, 55 years old. Bloating LMP: Patient is status post hysterectomy. TECHNIQUE: Transabdominal and Transvaginal TECHNICAL QUALITY: Adequate. COMPARISON: Comparison is made with prior examination dated 02/12/2017. FINDINGS: The patient is status post hysterectomy. The right ovary is non-visualized. The left ovary is non-visualized. There is no fluid in the cul-de-sac. The pre void volume of the bladder was 430.5 ml. US/Transvaginal Non- IMPRESSION: Status post hysterectomy. The ovaries were not visualized. Electronically Signed: Erwin Crook MD at 15:37 EDT , Service support ,
--- NOTE | 2021-02-20 11:32 | US_ITS ---
STUDY: ULTRASOUND OF THE FEMALE PELVIS - COMPLETE REASON FOR EXAM: Female, 55 years old. Bloating LMP: Patient is status post hysterectomy. TECHNIQUE: Transabdominal and Transvaginal TECHNICAL QUALITY: Adequate. COMPARISON: Comparison is made with prior examination dated 02/12/2017. FINDINGS: The patient is status post hysterectomy. The right ovary is non-visualized. The left ovary is non-visualized. There is no fluid in the cul-de-sac. The pre void volume of the bladder was 430.5 ml. US/Pelvic (Non ) IMPRESSION: Status post hysterectomy. The ovaries were not visualized. Electronically Signed: Erwin Crook MD at 15:37 EDT , Service support ,
== END ==
PROVIDERS: PCP Internal Medicine; Referring Provider Nurse Practitioner Women's Health; Visit Provider Nurse Practitioner Women's Health
DX: R14.0 Abdominal distension (gaseous) (principal)
CPT/HCPCS: 76830; 76856

== ENCOUNTER → 2021-03-24 12:08 | Outpatient (CLI) | payer OTHER, SELFPAY ==
--- NOTE | 2021-03-24 12:10 | BI_ITS ---
MAMMOGRAPHY - BILATERAL SCREENING REASON FOR EXAM: Female, 55 years old. Routine annual screening examination. PERTINENT HISTORY: Non-contributory. TECHNIQUE: Digital bilateral breast antonette (3D mammographic acquisition) in the CC and MLO projections. 2-D mediolateral oblique (MLO) and craniocaudad (CC) views of both breasts were obtained. CAD: Full Field Digital Mammography with Computer Added Detection was performed. COMPARISON: Comparison is made with prior study 03/11/2020 and 12/02/2018. FINDINGS: Breast Composition: The breasts are heterogeneously dense, which may obscure small masses. There are no dominant masses or suspicious calcifications. No other significant abnormalities are identified. There has been no significant change since the prior study. BI/SCRN MAMM (CAD)W/ANTONETTE BILAT IMPRESSION: Stable bilateral screening mammogram. Yearly follow-up mammogram recommended. (A) ASSESSMENT CATEGORY: BIRADS Category 1: Negative. A letter regarding these results will be sent to the patient by the facility within 30 days. Approximately 10% of breast cancers are not detected by mammography. A normal mammogram should not delay biopsy of a clinically suspicious abnormality. [id number] Electronically Signed: Erwin Crook MD at 13:29 EST , Service support ,
== END ==
PROVIDERS: PCP Internal Medicine; Referring Provider Nurse Practitioner Women's Health; Visit Provider Nurse Practitioner Women's Health
DX: Z12.31 Encounter for screening mammogram for malignant neoplasm of breast (principal)
CPT/HCPCS: 77063; 77067

== ENCOUNTER 2021-05-20 11:06 | Outpatient (CLI) | payer OTHER, SELFPAY ==
[2021-05-20 12:46] LABS: Absolute Lymphocyte Count 2.75 X10^3/uL (0.83-4.51); Absolute Neutrophil Count 1.3 X10^3/uL (2.0-7.7); Basophil# 0.03 X10^3/uL; Basophil% 0.7 % (0-1); Eosinophil# 0.11 X10^3/uL; Eosinophils% 2.5 % (0-5); Hemoglobin 14.6 g/dL (12.0-15.0); Lymphocyte # 2.75 X10^3/ul (0.83-4.51); Lymphocyte % 61.4 % (19-41); Mean Corp Hgb Conc 34.8 g/dL (32-36); Mean Corpuscular Hgb 31.1 pg (27.0-32.0); Mean Corpuscular Volume 89.4 fL (81-99); Mean Platelet Vol. 9.3 fl (6.2-12.0); Monocyte# 0.32 X10^3/uL; Monocyte% 7.1 % (0-10); NRBC Flagged by Analyzer 0 % (0-5); Neutrophil # 1.26 X10^3/uL (2.7-7.7); Neutrophil % 28.1 % (47-70); Platelet Count 214 K/mm3 (150-450); RBC Distribution Width CV 12.8 % (11.6-14.6); RBC Distribution Width SD 41.7 fl (35.1-43.9); White Blood Count 4.5 K/mm3 (4.4-11.0)
[2021-05-20 13:08] LABS: ALB/GLOB Ratio 1.1 RATIO (0.9-2.4); AST(SGOT) 21 U/L (15-37); Alanine Aminotransfer ALT/SGPT 41 U/L (13-56); Albumin, Serum 3.9 g/dL (3.2-5.0); Alkaline Phosphatase 72 U/L (45-117); Anion Gap 3 (5-15); BUN 12 mg/dL (7-18); BUN/Creat Ratio 17.6 RATIO (10-20); Chloride 108 mmol/L (98-107); Cholesterol 247 mg/dL (200); Creatinine, Serum 0.68 mg/dL (0.55-1.02); EST Glomerular Filtration Rate 94 mL/min (>60); Est Glom Filt Rate - Afr Amer 114 mL/min (>60); Globulin 3.5 g/dL (2.2-4.2); Glucose 98 mg/dL (74-106); High Density Lipoprotein 77 mg/dL; Potassium 4.4 mmol/L (3.5-5.1); Protein, Total 7.4 g/dL (6.4-8.2); Sodium Level 139 mmol/L (136-145); Triglycerides 117 mg/dL; Very Low Density Lipoprotein 23 mg/dL (5-40)
== END 2021-05-20 23:59 | disposition short-term general hospital (02) ==
LOC: BIMLAB 11:06
PROVIDERS: PCP Internal Medicine; Referring Provider Internal Medicine; Visit Provider Internal Medicine
DX: I10 Essential (primary) hypertension (principal)
CPT/HCPCS: 36415; 80053; 80061; 85025

== ENCOUNTER → 2021-12-09 | Outpatient (CLI) | payer OTHER, SELFPAY ==
[2021-12-09 17:06] LABS: Cholesterol 275 mg/dL (200); High Density Lipoprotein 91 mg/dL; Triglycerides 119 mg/dL; Very Low Density Lipoprotein 24 mg/dL (5-40)
== END | disposition home or self-care (01) ==
LOC: BIMLAB 15:23
PROVIDERS: PCP Internal Medicine; Referring Provider Internal Medicine; Visit Provider Internal Medicine
DX: E78.5 Hyperlipidemia, unspecified (principal)
CPT/HCPCS: 36415; 80061

== ENCOUNTER → 2022-03-30 | Outpatient (CLI) | payer OTHER, SELFPAY ==
--- NOTE | 2022-03-30 07:12 | BI_ITS ---
MAMMOGRAPHY - BILATERAL SCREENING REASON FOR EXAM: Female, 56 years old. Routine annual screening examination. PERTINENT HISTORY: Non-contributory. TECHNIQUE: Digital bilateral breast antonette (3D mammographic acquisition) in the CC and MLO projections. 2-D mediolateral oblique (MLO) and craniocaudad (CC) views of both breasts were obtained. CAD: Full Field Digital Mammography with Computer Added Detection was performed. COMPARISON: Comparison is made with prior examination dated 03/24/2021 and 03/11/2020. FINDINGS: Breast Composition: The breasts are heterogeneously dense, which may obscure small masses. There are no dominant masses or suspicious calcifications. Stable small benign-appearing bilateral axillary lymph nodes. No other significant abnormalities are identified. There has been no significant change since the prior study. BI/SCRN MAMM (CAD)W/ANTONETTE BILAT IMPRESSION: Stable bilateral screening mammogram. Yearly follow-up mammogram recommended. (A) ASSESSMENT CATEGORY: BIRADS Category 2: Benign. A letter regarding these results will be sent to the patient by the facility within 30 days. Approximately 10% of breast cancers are not detected by mammography. A normal mammogram should not delay biopsy of a clinically suspicious abnormality. [id number] Electronically Signed: Erwin Crook MD at 8:28 EST ,
== END | disposition home or self-care (01) ==
LOC: OPBI 07:10
PROVIDERS: PCP Internal Medicine; Referring Provider Nurse Practitioner Women's Health; Visit Provider Nurse Practitioner Women's Health
DX: Z12.31 Encounter for screening mammogram for malignant neoplasm of breast (principal); N63.0 Unspecified lump in unspecified breast
CPT/HCPCS: 77063; 77067

== ENCOUNTER → 2022-07-23 | Outpatient (CLI) | payer OTHER, SELFPAY ==
[2022-07-23 17:18] LABS: Absolute Neutrophil Count 3.8 X10^3/uL (2.0-7.7); Basophil# 0.03 X10^3/uL; Basophil% 0.4 % (0-1); Eosinophils% 1.4 % (0-5); Hematocrit 44.7 % (37-47); Hemoglobin 15.2 g/dL (12.0-15.0); Lymphocyte % 38.1 % (19-41); Mean Corpuscular Hgb 30.6 pg (27.0-32.0); Mean Corpuscular Volume 90.1 fL (81-99); Mean Platelet Vol. 9.9 fl (6.2-12.0); Monocyte# 0.41 X10^3/uL; Monocyte% 5.8 % (0-10); NRBC Flagged by Analyzer 0 % (0-5); Neutrophil # 3.83 X10^3/uL (2.7-7.7); Platelet Count 219 K/mm3 (150-450); RBC Distribution Width CV 12.1 % (11.6-14.6); RBC Distribution Width SD 39.8 fl (35.1-43.9); Red Blood Count 4.96 M/mm3 (4.2-5.4); White Blood Count 7.1 K/mm3 (4.4-11.0)
[2022-07-23 17:24] LABS: ALB/GLOB Ratio 1.3 RATIO (0.9-2.4); AST(SGOT) 22 U/L (15-37); Alanine Aminotransfer ALT/SGPT 34 U/L (13-56); Albumin, Serum 4.2 g/dL (3.2-5.0); Alkaline Phosphatase 78 U/L (45-117); Anion Gap 5 (5-15); BUN 13 mg/dL (7-18); BUN/Creat Ratio 17.2 RATIO (10-20); Calcium,Total 9.2 mg/dL (8.5-10.1); Chloride 107 mmol/L (98-107); Cholesterol 205 mg/dL (200); Creatinine, Serum 0.76 mg/dL (0.55-1.02); EST Glomerular Filtration Rate 83 mL/min (>60); Est Glom Filt Rate - Afr Amer 101 mL/min (>60); Globulin 3.3 g/dL (2.2-4.2); Glucose 99 mg/dL (74-106); High Density Lipoprotein 90 mg/dL; Potassium 4.2 mmol/L (3.5-5.1); Protein, Total 7.5 g/dL (6.4-8.2); Sodium Level 138 mmol/L (136-145); Triglycerides 68 mg/dL; Very Low Density Lipoprotein 14 mg/dL (5-40)
== END | disposition home or self-care (01) ==
LOC: BIMLAB 15:55
PROVIDERS: PCP Internal Medicine; Referring Provider Internal Medicine; Visit Provider Internal Medicine
DX: E78.5 Hyperlipidemia, unspecified (principal); I10 Essential (primary) hypertension
CPT/HCPCS: 36415; 80053; 80061; 85025

== ENCOUNTER → 2023-03-31 | Outpatient (CLI) | payer OTHER, SELFPAY ==
--- NOTE | 2023-03-31 14:58 | BI_ITS ---
MAMMOGRAPHY - BILATERAL SCREENING REASON FOR EXAM: Female, 57 years old. Routine annual screening examination. PERTINENT HISTORY: Non-contributory. TECHNIQUE: Digital bilateral breast antonette (3D mammographic acquisition) in the CC and MLO projections. 2-D mediolateral oblique (MLO) and craniocaudad (CC) views of both breasts were obtained. CAD: Full Field Digital Mammography with Computer Added Detection was performed. COMPARISON: Comparison is made with prior study dated March 30, 2022 and March 24, 2021. FINDINGS: Breast Composition: The breasts are heterogeneously dense, which may obscure small masses. There are no dominant masses or suspicious calcifications. Stable fat-containing bilateral axillary lymph nodes. No other significant abnormalities are identified. There has been no significant change since the prior study. BI/SCRN MAMM (CAD)W/ANTONETTE BILAT IMPRESSION: Stable bilateral screening mammogram. Yearly follow-up mammogram recommended. (A) ASSESSMENT CATEGORY: BIRADS Category 2: Benign. A letter regarding these results will be sent to the patient by the facility within 30 days. Approximately 10% of breast cancers are not detected by mammography. A normal mammogram should not delay biopsy of a clinically suspicious abnormality. [id number] Electronically Signed: Erwin Crook MD at 15:44 EST ,
== END | disposition home or self-care (01) ==
LOC: OPBI 14:56
PROVIDERS: PCP Internal Medicine; Referring Provider Nurse Practitioner Women's Health; Visit Provider Nurse Practitioner Women's Health
DX: Z12.31 Encounter for screening mammogram for malignant neoplasm of breast (principal)
CPT/HCPCS: 77063; 77067

== ENCOUNTER → 2023-05-06 | Outpatient (CLI) | payer OTHER, SELFPAY ==
--- OUTSIDE RECORDS SUMMARY | 2023-05-06 15:42 | XMS RPT_ITS | CCD ---
Author Name Unknown Address [address] [place] [address] Organization [facility] Care Team Providers Care [employer] Name Role Phone Lakshmi De La Rosa NP Unavailable Allergies Allergy Classification Reported Allergen(s) Allergy Type Date of Onset Reaction(s) Facility (2 sources) penicillin v drug allergy 01-11-2017 [facility] Problems Problem Classification Problem Date Documented Da te Episodic/Chronic Menstrual disorders (2 sources) Menorrhagia; Translations: [Excessive and frequent menstruation with regular cycle] Onset: 01-11-2017 01-11-2017 Chronic Unclassified (1 source) Screening mammography ; Translations: [Encounter for screening mammogram for malignant neoplasm of breast] Onset: 01-11-2017 01-11-2017 Results Test Name Value Interpretation Reference Range Facil ity Vital Signs Date Time Vital Sign Value Performing Clinician Facility 01-11-2017 12:52-0400 BMI (Body Mass Index) 31.95 kg/m2 Lakshmi De La Rosa NP [facility] 01-11-2017 12:52-0400 Body Temperature 97.2 [degF] Lakshmi De La Rosa NP [facility] 01-11-2017 12:52-0400 BP Diastolic 87 mm[Hg] Lakshmi De La Rosa NP [facility] 01-11-2017 12:52-0400 BP Systolic 134 mm[Hg] Lakshmi De La Rosa NP [facility][1] [facility] 01-11-2017 12:52-0400 Height 170.18 cm Lakshmi De La Rosa NP [facility][1] [facility] 01-11-2017 12:52-0400 Pulse (Heart Rate) 78 /min Lakshmi De La Rosa NP [facility] 01-11-2017 12:52-0400 Respiratory Rate 16 /min Lakshmi De La Rosa NP [facility] 01-11-2017 12:52-0400 Weight 92.53 kg Lakshmi Estrella [employer] [facility] Procedures Date Procedure Procedure Detail Performing Clinician Start: 01-11-2017 Screening mammography Mammogra m yearly screening Lakshmi De La Rosa [employer] Start: 01-11-2017 End: 01-11-2017 Documentation of current medications Lakshmi De La Rosa NP Plan of Treatment Date Care Activity Detail Author Start: 01-11-2017 End: 01-11-2017 Mammogram, screening Mammogram, Screening, both breasts [facility] Start: 01-11-2017 End: 01-11-2017 Us pelvic nonobstetric real-time image complete US Pelvis [facility] Start: 01-11-2017 End: 01-11-2017 Us transvaginal US Transvaginal [facility] Start: 01-11-2017 End: 01-11-2017 Appointment Appointment [facility] Start: 01-11-2017 End: 01-11-2017 Mammogram, screening Mammogram, Screening, both breasts [facility] Start: 01-11-2017 End: 01-11-2017 Transvaginal us, non-ob US Transvaginal [facility] Start: 01-11-2017 End: 01-11-2017 Us exam, pelvic, complete US Pelvis [facility] Summary Purpose Family History No Family History Records Found Advance Directives No Advanced Directives Records Found Additional Source Comments INFORMATION SOURCE (unrecogn ized section and content) FOR RECORDS PERTAINING TO PATIENTS WHO ARE OR HAVE BEEN ENROLLED IN A CHEMICAL DEPENDENCY/SUBSTANCEABUSE PROGRAM, SOME INFORMATION MAY BE OMITTED. This clinical summary was aggregated from multiple sources. Caution should be exercised in using it in the provision of clinical care. This summary normalizes information from multiple sources, and as a consequence, information in this document may materially change the coding, format and clinical context of patient data. In addition, data may be omitted in some cases. CLINICAL DECISIONS SHOULD BE BASED ON THE PRIMARY CLINICAL RECORDS. [facility]. provides no warranty or guarantee of the accuracy or completeness of information in this document.
[2023-05-06 16:43] LABS: Absolute Lymphocyte Count 3.11 X10^3/uL (0.83-4.51); Absolute Neutrophil Count 2.5 X10^3/uL (2.0-7.7); Basophil# 0.04 X10^3/uL; Basophil% 0.6 % (0-1); Eosinophil# 0.12 X10^3/uL; Eosinophils% 1.9 % (0-5); Hematocrit 42.4 % (37-47); Hemoglobin 14.7 g/dL (12.0-15.0); Lymphocyte # 3.11 X10^3/ul (0.83-4.51); Mean Corp Hgb Conc 34.7 g/dL (32-36); Mean Corpuscular Hgb 30.4 pg (27.0-32.0); Mean Corpuscular Volume 87.6 fL (81-99); Mean Platelet Vol. 9.7 fl (6.2-12.0); Monocyte# 0.43 X10^3/uL; Monocyte% 6.9 % (0-10); NRBC Flagged by Analyzer 0 % (0-5); Neutrophil % 40.3 % (47-70); Platelet Count 240 K/mm3 (150-450); RBC Distribution Width CV 12.2 % (11.6-14.6); RBC Distribution Width SD 39.1 fl (35.1-43.9); Red Blood Count 4.84 M/mm3 (4.2-5.4); White Blood Count 6.2 K/mm3 (4.4-11.0)
[2023-05-06 17:04] LABS: ALB/GLOB Ratio 1.2 RATIO (0.9-2.4); AST(SGOT) 23 U/L (15-37); Alanine Aminotransfer ALT/SGPT 31 U/L (13-56); Alkaline Phosphatase 67 U/L (45-117); Anion Gap 5 (5-15); BUN 14 mg/dL (7-18); BUN/Creat Ratio 19.2 RATIO (10-20); Calcium,Total 9.5 mg/dL (8.5-10.1); Chloride 110 mmol/L (98-107); Cholesterol 188 mg/dL (200); Creatinine, Serum 0.73 mg/dL (0.55-1.02); EST Glomerular Filtration Rate 87 mL/min (>60); Est Glom Filt Rate - Afr Amer 105 mL/min (>60); Globulin 3.2 g/dL (2.2-4.2); Glucose 104 mg/dL (74-106); High Density Lipoprotein 93 mg/dL; Potassium 3.9 mmol/L (3.5-5.1); Protein, Total 7.2 g/dL (6.4-8.2); Sodium Level 140 mmol/L (136-145); Triglycerides 86 mg/dL; Very Low Density Lipoprotein 17 mg/dL (5-40)
== END | disposition home or self-care (01) ==
LOC: BIMLAB 15:19
PROVIDERS: PCP Internal Medicine; Referring Provider Internal Medicine; Visit Provider Internal Medicine
DX: E78.5 Hyperlipidemia, unspecified (principal); I10 Essential (primary) hypertension
CPT/HCPCS: 36415; 80053; 80061; 85025

== ENCOUNTER → 2023-11-05 | Outpatient (CLI) | payer OTHER, SELFPAY | END | disposition home or self-care (01) | LOC: LABSPEC 15:08 | PROVIDERS: PCP Internal Medicine; Referring Provider Physician Assistant Surgical; Visit Provider Physician Assistant Surgical | DX: N39.0 Urinary tract infection, site not specified (principal) | CPT/HCPCS: 87077; 87086; 87088; 87186 ==

== ENCOUNTER → 2023-12-23 | Outpatient (CLI) | payer OTHER, SELFPAY ==
[2023-12-23 15:33] LABS: Absolute Lymphocyte Count 2.82 X10^3/uL (0.83-4.51); Absolute Neutrophil Count 2.2 X10^3/uL (2.0-7.7); Basophil# 0.05 X10^3/uL; Basophil% 0.9 % (0-1); Eosinophil# 0.13 X10^3/uL; Eosinophils% 2.3 % (0-5); Hematocrit 42.9 % (37-47); Hemoglobin 14.4 g/dL (12.0-15.0); Lymphocyte # 2.82 X10^3/ul (0.83-4.51); Lymphocyte % 49.6 % (19-41); Mean Corp Hgb Conc 33.6 g/dL (32-36); Mean Corpuscular Hgb 29.5 pg (27.0-32.0); Mean Corpuscular Volume 87.9 fL (81-99); Monocyte# 0.43 X10^3/uL; Monocyte% 7.6 % (0-10); NRBC Flagged by Analyzer 0 % (0-5); Neutrophil # 2.23 X10^3/uL (2.7-7.7); Neutrophil % 39.2 % (47-70); Platelet Count 219 K/mm3 (150-450); RBC Distribution Width SD 38.7 fl (35.1-43.9); Red Blood Count 4.88 M/mm3 (4.2-5.4); White Blood Count 5.7 K/mm3 (4.4-11.0)
[2023-12-23 16:05] LABS: ALB/GLOB Ratio 1.2 RATIO (0.9-2.4); AST(SGOT) 17 U/L (15-37); Alanine Aminotransfer ALT/SGPT 29 U/L (13-56); Alkaline Phosphatase 72 U/L (45-117); Anion Gap 6 (5-15); BUN 14 mg/dL (7-18); BUN/Creat Ratio 19.4 RATIO (10-20); Calcium,Total 9.2 mg/dL (8.5-10.1); Chloride 106 mmol/L (98-107); Cholesterol 190 mg/dL (200); Creatinine, Serum 0.72 mg/dL (0.55-1.02); EST Glomerular Filtration Rate 88 mL/min (>60); Est Glom Filt Rate - Afr Amer 106 mL/min (>60); Globulin 3.3 g/dL (2.2-4.2); Glucose 98 mg/dL (74-106); High Density Lipoprotein 92 mg/dL; Potassium 3.9 mmol/L (3.5-5.1); Protein, Total 7.3 g/dL (6.4-8.2); Sodium Level 138 mmol/L (136-145); Triglycerides 75 mg/dL; Very Low Density Lipoprotein 15 mg/dL (5-40)
== END | disposition home or self-care (01) ==
LOC: BIMLAB 14:22
PROVIDERS: PCP Internal Medicine; Referring Provider Physician Assistant; Visit Provider Physician Assistant
DX: I10 Essential (primary) hypertension (principal); E66.9 Obesity, unspecified; E78.5 Hyperlipidemia, unspecified
CPT/HCPCS: 36415; 80053; 80061; 85025

== ENCOUNTER → 2024-04-06 | Outpatient (CLI) | payer OTHER, SELFPAY ==
--- NOTE | 2024-04-06 08:09 | BI_ITS ---
MAMMOGRAPHY - BILATERAL SCREENING REASON FOR EXAM: Female, 58 years old. Routine annual screening examination. PERTINENT HISTORY: Non-contributory. TECHNIQUE: Digital bilateral breast antonette (3D mammographic acquisition) in the CC and MLO projections. 2-D mediolateral oblique (MLO) and craniocaudad (CC) views of both breasts were obtained. CAD: Full Field Digital Mammography with Computer Added Detection was performed. COMPARISON: Comparison is made with prior study dated March 31, 2023 and March 30, 2022. FINDINGS: Breast Composition: The breasts are heterogeneously dense, which may obscure small masses. There are no dominant masses or suspicious calcifications. Stable bilateral fat containing axillary lymph nodes. No other significant abnormalities are identified. There has been no significant change since the prior study. BI/SCRN MAMM (CAD)W/ANTONETTE BILAT IMPRESSION: Stable bilateral screening mammogram. Yearly follow-up mammogram recommended. (A) ASSESSMENT CATEGORY: BIRADS Category 2: Benign. A letter regarding these results will be sent to the patient by the facility within 30 days. Approximately 10% of breast cancers are not detected by mammography. A normal mammogram should not delay biopsy of a clinically suspicious abnormality. [id number] Electronically Signed: Erwin Crook MD at 8:47 EST ,
== END | disposition home or self-care (01) ==
PROVIDERS: PCP Internal Medicine; Referring Provider Nurse Practitioner Women's Health; Visit Provider Nurse Practitioner Women's Health
DX: Z12.31 Encounter for screening mammogram for malignant neoplasm of breast (principal)
CPT/HCPCS: 77063; 77067

== ENCOUNTER → 2024-06-22 | Outpatient (CLI) | payer OTHER, SELFPAY ==
[2024-06-24 07:07] LABS: Rubeola IgG Ab < 13.5 AU/mL (Immune >16.4)
== END | disposition home or self-care (01) ==
LOC: BIMLAB 15:41
PROVIDERS: PCP Internal Medicine; Referring Provider Internal Medicine; Visit Provider Internal Medicine
DX: Z01.84 Encounter for antibody response examination (principal)
CPT/HCPCS: 36415; 86765

== ENCOUNTER 2024-08-17 08:47 | Outpatient (RCR) | payer OTHER, SELFPAY | END 2024-09-16 23:59 | LOC: NS 08:47 | PROVIDERS: PCP Internal Medicine; Referring Provider Internal Medicine; Visit Provider Internal Medicine | DX: Z71.3 Dietary counseling and surveillance (principal); E66.9 Obesity, unspecified; Z68.33 Body mass index [BMI] 33.0-33.9, adult | CPT/HCPCS: 97802 ==

== ENCOUNTER 2024-08-29 08:03 | Day surgery (SDC) | payer OTHER, SELFPAY ==
[2024-08-29] VITALS (8 sets, daily range): BP systolic 98–122; BP diastolic 68–85; PULSE 64–85; RESP 16–18; TEMP 36.1–36.3; O2SAT 94–98; BMI 33.3
[2024-08-29] MEDS: Lactated Ringers 1,000 ML 15 ML IV (08:32)
--- NOTE | 2024-08-29 08:50 | PCM.PRE.AN2 ---
ASA Classification* ASA Classification ASA Classification: 2 Assessment & Plan Anesthesia* Anesthesia Assessment Anesthesia Assessment: Discussed sedation and/or anesthesia options, risks, benefits, and alternatives with patient/parents/legal guardian/POA. Questions invited. The patient/parents/legal guardian/POA seems to understand and agrees to proceed with anesthesia plan. Reviewed the physical assessment, medical history, allergy history and patient home medications list prior to surgery/procedure/anesthetic and documented any changes. Performed airway and anesthesia risk assessments. Anesthesia Type Anesthesia Type: MAC History Source History Obtained from:: Patient and Chart Anesthesia Focused Assessment* Temperature: 97.3 F Pulse Rate: 85 Blood Pressure: 122/85 Respiratory Rate: 16 Pulse Ox: 96 Oxygen Delivery Method: Room Air Airway Assessment Mouth opens: >3 cm Mallampati Score: II Teeth Condition: Intact Focused Labs Anesthesia Preop lab: CBC WBC 5.7 K/mm3 (4.4-11.0) 12/23/23 14:23 12/23/23 RBC 4.88 M/mm3 (4.2-5.4) 12/23/23 14:23 12/23/23 Hgb 14.4 g/dL (12.0-15.0) 12/23/23 14:23 12/23/23 Hct 42.9 % (37-47) 12/23/23 14:23 12/23/23 Plt Count 219 K/mm3 (150-450) 12/23/23 14:23 12/23/23 CHEMISTRY Potassium 3.9 mmol/L (3.5-5.1) 12/23/23 14:23 12/23/23 Sodium 138 mmol/L (136-145) 12/23/23 14:23 12/23/23 BUN 14 mg/dL (7-18) 12/23/23 14:23 12/23/23 Creatinine 0.72 mg/dL (0.55-1.02) 12/23/23 14:23 12/23/23 Glucose 98 mg/dL (74-106) 12/23/23 14:23 12/23/23 TSH 1.31 uIU/mL (0.358-3.74) 02/19/20 10:07 02/19/20 COAG Urine Test Negative Negative 12/23/17 05:58 12/23/17 Pre-Assessment Diagnosis/Proposed Procedure Planned Operative Procedure(s): COLONOSCOPY Anesthesia History 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 When Was Last Pacemaker Check QUESTION #4 FULL TEXT: You/Your Family Experience fever (hyperthermia) with Anesthesia Last Oral Intake Last Oral intake: Last Oral Intake NPO since 05:00 08/29/24 08:21 Meds taken in AM with sips of Yes 08/29/24 08:21 water? 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 Female Yes 08/25/24 16:07 HX of Motion Sickness Yes 08/25/24 16:07 HX of N/V After Surgery No 08/25/24 16:07 Non-Smoker Yes 08/25/24 16:07 Duration of Surgery greater No 08/25/24 16:07 than 60 minutes Number of Risk Factors 3 08/25/24 16:07 PONV Score Moderate Risk 08/25/24 16:07 Height & Weight Height & Weight: Anesthesia: Height & Weight Height 5 ft 7 in 08/29/24 08:21 Weight: 96.6 kg 08/29/24 08:21 Body Mass Index (BMI) 33.3 08/29/24 08:21 Respiratory Assessment Respiratory Assessment - sheet metal journeyman: Respiratory Tract Infection Hx - sheet metal journeyman Hx Respiratory Tract Infection No 08/25/24 16:07 STOP Sleep Apnea STOP Sleep Apnea - sheet metal journeyman: STOP Sleep Apnea - sheet metal journeyman Hx Hypertension Yes: PER PT, CONTROLLED ON 08/25/24 16:07 MEDS Hx Sleep Apnea No 08/25/24 16:07 CPAP No 08/25/24 16:07 BIPAP Do you snore loudly (louder No 08/25/24 16:07 than talking or can be heard Do you often feel tired/ No 08/25/24 16:07 fatigued/ sleepy during daytime? Has anyone observed you stop No 08/25/24 16:07 breathing during sleep? STOP Results Negative 08/25/24 16:07 QUESTION #5 FULL TEXT : Do you snore loudly (louder than talking or can be heard through closed doors)? 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 Specify any problems Hx of Preganancy in last 3 N/A 08/25/24 16:07 Months Nurse Filling Out Transfusion MGRIFFITH 08/25/24 16:07 & Questions: Date: 08/25/24 08/25/24 16:07 Time: 16:08 08/25/24 16:07 Patient unable to answer at this time (ie. confused, unrespo /Reproduction History /Reproductive History - sheet metal journeyman: /Reproductive Hx- sheet metal journeyman Hx Now No 08/25/24 16:07 Gestational Age (in weeks): EDC: Hx Hx Para Hx Section SAB No 08/25/24 16:07 Active Medications Active Medications: Current Medications Generic Name Dose Route Start Last Admin Trade Name Freq PRN Reason Stop Dose Admin Lactated Ringer's 1,000 mls @ 15 mls/hr 08/29/24 08:15 08/29/24 08:32 IV 15 mls/hr .Q48H MEMO Administration PFSH Medical History Wears contact lenses Alcohol use High cholesterol Heartburn Non-smoker Hypertension Immunity status testing Strabismus after retinal surgery Retinal detachment, right Hyperlipidemia Bloating Obesity (BMI 30.0-34.9) Osteoarthritis Arthritis Polycystic ovaries Bladder neoplasm of uncertain malignant potential Abnormal Pap smear of cervix Home Medications ?Medication ?Instructions ?Recorded ?Last Taken ?Type estradiol 0.01% (0.1 mg/gram) See Rx Instructions vaginal 02/05/21 08/24/24 Rx vaginal cream (Estrace) .COMPLEX #42.5 grams amlodipine 5 mg tablet 5 mg PO DAILY #90 tabs 08/14/24 08/29/24 Rx rosuvastatin 10 mg tablet 10 mg PO DAILY #90 tabs 08/14/24 08/28/24 Rx Allergy/AdvReac Type Severity Reaction Status Date / Time Penicillins Allergy Mild hives Verified 08/29/24 08:21 Family History Grandfather Myocardial infarction Prostate cancer Grandmother Lung cancer Surgical History S/P eye surgery Hx of colonoscopy removal of cyst from bladder Status post bilateral salpingectomy S/P laparoscopic assisted vaginal hysterectomy (LAVH) S/P dilation and curettage S/P right knee surgery Status post colposcopy Social History household members: spouse current occupational status: employed Smoking Status: Never smoker alcohol intake: current details: few times per week substance use type: does not use caffeine: Yes what type of physical activity do you participate in: walking, running and aerobics frequency: 3-4 times per week seatbelt use: always do you feel safe at home: Yes 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 Physical Exam Const alert and oriented x3 Resp normal respiratory effort Auscultation: clear to auscultation bilaterally Cardio regular rate Neuro oriented x3 and moves all extremities
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
--- NOTE | 2024-08-29 09:33 | OP.CCLET_ITS ---
08/29/2024 Janet Causey MD [address] [place] [address] [place] [address] Re : Colonoscopy procedure for Elba Murray Dear Dr. Causey This procedure was performed on Thursday, August 29, 2024. My impressions and recommendations are as follows: Impressions : - The entire examined colon is normal on direct and retroflexion views. - No specimens collected. Recommendations : - Discharge patient to home. - Resume previous diet. - Continue present medications. - Repeat colonoscopy in 10 years for screening purposes. My findings are described in the full procedure note, which is enclosed. If I can be of further assistance, please feel free to contact me at Doctor phone number(s): , Work: . Sincerely, Nirmal Jose MD 08/29/2024 9:32:32 AM This report has been signed electronically.
--- NOTE | 2024-08-29 09:33 | OP.COLON_ITS ---
Patient Name: Elba Murray Procedure Date: 08/29/2024 9:00 AM Date of : 1965 Age: 59 Procedure: Colonoscopy Indications: Screening for colorectal malignant neoplasm Providers: Nirmal Jose MD Referring MD: Nirmal Jose MD Medicines: Propofol per Anesthesia Patient Profile: This is a 59 year old female. Refer to note in patient chart for documentation of history and physical. Last Colonoscopy: 10 years ago. Complications: No immediate complications. Procedure: Pre-Anesthesia Assessment: - Prior to the procedure, a History and Physical was performed, and patient medications and allergies were reviewed. The patient's tolerance of previous anesthesia was also reviewed. The risks and benefits of the procedure and the sedation options and risks were discussed with the patient. All questions were answered, and informed consent was obtained. Prior Anticoagulants: The patient has taken no anticoagulant or antiplatelet agents. After reviewing the risks and benefits, the patient was deemed in satisfactory condition to undergo the procedure. After I obtained informed consent, the scope was passed under direct vision. Throughout the procedure, the patient's blood pressure, pulse, and oxygen saturations were monitored continuously. The Colonoscope was introduced through the anus and advanced to the cecum, identified by appendiceal orifice and ileocecal valve. The colonoscopy was performed without difficulty. The patient tolerated the procedure well. The quality of the bowel preparation was good. The ileocecal valve, appendiceal orifice, and rectum were photographed. Scope In: 9:13:44 AM Scope Withdrawal Time 0 hours 6 minutes 26 seconds Scope Out: 9:28:45 AM Total Procedure Duration Time 0 hours 15 minutes 1 second Findings: The entire examined colon appeared normal on direct and retroflexion views. Impression: - The entire examined colon is normal on direct and retroflexion views. - No specimens collected. Recommendation: - Discharge patient to home. - Resume previous diet. - Continue present medications. - Repeat colonoscopy in 10 years for screening purposes. Procedure Code(s): --- Professional --- 76696, Colonoscopy, flexible; diagnostic, including collection of specimen(s) by brushing or washing, when performed (separate procedure) Diagnosis Code(s): --- Professional --- Z12.11, Encounter for screening for malignant neoplasm of colon CPT copyright 2021 [employer]. All rights reserved. The codes documented in this report are preliminary and upon rehabilitation construction specialist review may be revised to meet current compliance requirements. Nirmal Jose MD 08/29/2024 9:32:32 AM This report has been signed electronically. Number of Addenda: 0 Note Initiated On: 08/29/2024 9:00 AM
--- NOTE | 2024-08-29 09:36 | PCM.POST.ANE ---
Anesthesia: Postop Eval I Current Vital Signs Temperature: 97 F Pulse Rate: 64 Blood Pressure: 104/70 Respiratory Rate: 16 Pulse Ox: 98 Oxygen Delivery Method: Room Air Assessment Airway patent: Yes Spontaneous unlabored respirations: Yes Mental status: Awake and Calm nausea: No Vomiting: No Anesthesia Complication: No Fluid Hydration Crystalloid volume administer (ml): 400 Total IV fluid infused: 400 Progress Note Anesthesia document: Postop Eval 1 completed: Yes
--- NOTE | 2024-08-29 09:53 | PCM.POSTANE2 ---
Anesthesia Postop Eval I Sum Postop Eval Completion status Anesthesia document: Postop Eval 1 completed: Yes Anesthesia Postop Eval I Summary Anesthesia Postop Eval I Summary: Anesthesia Postop Eval I: Assessment Summary Airway patent Yes 08/29/24 09:38 [email or web address] Spontaneous unlabored Yes 08/29/24 09:38 [email or web address] respirations Mental status Awake,Calm 08/29/24 09:38 [email or web address] nausea No 08/29/24 09:38 [email or web address] Vomiting No 08/29/24 09:38 [email or web address] Anesthesia Postop Eval I: Fluid Summary Crystalloid volume administer 400 08/29/24 09:38 [email or web address] (ml) Colloids volume administered ( ml) Blood Product volume administered (ml) Total IV fluid infused 400 08/29/24 09:38 [email or web address] Anesthesia Postop Eval I: Summary Notes Anesthesia Complication No 08/29/24 09:38 [email or web address] Anesthesia Complication Comment: Post-operative progress note Anesthesia: Postop Eval II Evaluation Mental status: Awake and Calm Pain Level: 0 nausea: No Vomiting: No Complications Anesthesia Complication: No
== END 2024-08-29 10:13 | disposition home or self-care (01) ==
LOC: EN 08:04 → AC 08:06
PROVIDERS: PCP Internal Medicine; Referring Provider Surgery; Visit Provider Surgery
PROC: 0DJD8ZZ Inspection of Lower Intestinal Tract, Via Natural or Artificial Opening Endoscopic (ICD-10-PCS; CPT 45378; principal; 2024-08-29 08:55)
DX: Z12.11 Encounter for screening for malignant neoplasm of colon (principal); I10 Essential (primary) hypertension; E78.00 Pure hypercholesterolemia, unspecified; Z90.710 Acquired absence of both cervix and uterus; Z79.899 Other long term (current) drug therapy
CPT/HCPCS: 45378; J2405

== ENCOUNTER 2024-09-26 12:52 | Outpatient (RCR) | payer OTHER, SELFPAY | END 2024-10-16 23:59 | LOC: NS 12:52 | PROVIDERS: PCP Internal Medicine; Referring Provider Internal Medicine; Visit Provider Internal Medicine | DX: Z71.3 Dietary counseling and surveillance (principal); E66.9 Obesity, unspecified; Z68.33 Body mass index [BMI] 33.0-33.9, adult | CPT/HCPCS: 97803 ==

== ENCOUNTER 2024-10-30 14:55 | Outpatient (RCR) | payer OTHER, SELFPAY | END 2024-11-16 23:59 | LOC: NS 14:55 | PROVIDERS: PCP Internal Medicine; Referring Provider Internal Medicine; Visit Provider Internal Medicine | DX: Z71.3 Dietary counseling and surveillance (principal); E66.9 Obesity, unspecified | CPT/HCPCS: 97803 ==

== ENCOUNTER 2024-12-06 12:56 | Outpatient (RCR) | payer OTHER, SELFPAY | END 2024-12-17 23:59 | LOC: NS 12:56 | PROVIDERS: PCP Internal Medicine; Referring Provider Internal Medicine; Visit Provider Internal Medicine | DX: Z71.3 Dietary counseling and surveillance (principal); E66.9 Obesity, unspecified; Z68.31 Body mass index [BMI] 31.0-31.9, adult | CPT/HCPCS: 97803 ==

== ENCOUNTER → 2024-12-28 | Outpatient (CLI) | payer OTHER, SELFPAY ==
[2024-12-28 15:09] LABS: Hematocrit 42.3 % (37-47); Hemoglobin 14.5 g/dL (12.0-15.0); Immature Granulocytes Count 0.010 X10^3/uL (0.0-0.0); Mean Corp Hgb Conc 34.3 g/dL (32-36); Mean Corpuscular Volume 87.8 fL (81-99); Mean Platelet Vol. 10.0 fl (6.2-12.0); NRBC Flagged by Analyzer 0 % (0-5); Platelet Count 218 K/mm3 (150-450); RBC Distribution Width CV 12.4 % (11.6-14.6); RBC Distribution Width SD 39.8 fl (35.1-43.9); Red Blood Count 4.82 M/mm3 (4.2-5.4); White Blood Count 6.9 K/mm3 (4.4-11.0)
[2024-12-28 15:31] LABS: AST(SGOT) 25 U/L (<=31); Alanine Aminotransfer ALT/SGPT 25 U/L (<=34); Albumin, Serum 4.6 g/dL (3.4-4.8); Alkaline Phosphatase 68 U/L (35-104); Anion Gap 13 (5-15); BUN 16 mg/dL (4-19); BUN/Creat Ratio 22.5 RATIO (10-20); Calcium,Total 9.9 mg/dL (7.6-11.0); Carbon Dioxide 22.5 mmol/L (21.0-32.0); Chloride 106 mmol/L (98-108); Cholesterol 162 mg/dL (<=200); Globulin 2.8 g/dL (2.2-4.2); Glucose 98 mg/dL (70-99); Low Density Lipoprotein Calc. 68 mg/dL; Potassium 4.3 mmol/L (3.3-5.1); Triglycerides 66 mg/dL; Very Low Density Lipoprotein 13 mg/dL (5-40); cholesterol:hdl ratio screen 2.01
== END | disposition home or self-care (01) ==
LOC: BIMLAB 14:16
PROVIDERS: PCP Internal Medicine; Referring Provider Internal Medicine; Visit Provider Internal Medicine
DX: E78.5 Hyperlipidemia, unspecified (principal); I10 Essential (primary) hypertension
CPT/HCPCS: 36415; 80053; 80061; 85025

== ENCOUNTER 2025-03-19 14:54 | Outpatient (RCR) | payer OTHER, SELFPAY | END 2025-04-18 23:59 | LOC: NS 14:54 | PROVIDERS: PCP Internal Medicine; Referring Provider Internal Medicine; Visit Provider Internal Medicine | DX: Z71.3 Dietary counseling and surveillance (principal); E66.9 Obesity, unspecified; Z68.30 Body mass index [BMI] 30.0-30.9, adult | CPT/HCPCS: 97803 ==